=== PATIENT | female | born 1960 | race Caucasian/White ===

== ENCOUNTER 2022-09-13 12:50 | Outpatient (CLI) | payer OTHER, SELFPAY ==
--- NOTE | 2022-09-13 13:00 | XR_ITS ---
Patient: NANETTE MARSH Facility:?[facility] Patient ID:?[id number] Site Patient ID:?[id number]. Site :?[id number] Study:?DEXA-Spine DEXA SPINE/HIPS-09/14/2022 8:08:52 AM Ordering Physician:KASIA Final Report: DXA BONE MINERAL DENSITY STUDY Current height (in): 64.0. Weight (lb): 160.0. Menopause age: 56. Ethnicity: White. Reason for exam: Screening for osteoporosis. 1. Have you had a previous hip or vertebral fracture? No. 2. Have you had any fractures during your adult life which did not result from significant trauma (e.g., auto accident)? No. 3. Did either of your parents have a hip fracture? No. 4. Do you smoke? No. 5. Have you ever taken Glucocorticoids? No. 6. Do you have rheumatoid arthritis? No. 7. Do you have secondary osteoporosis? No. 8. Do you drink 3 or more alcoholic drinks per day? No. 9. Are you being treated for osteoporosis? No. 10. Have you ever taken any of the following medications: Actonel, Evista, Fosamax, Miacalcin, Reclast, Boniva, Forteo, HRT (i.e. estrogen/hormone therapy), Protelos, Prolia, Vitamin D, Calcium, other ? please specify. ANSWER: Yes, vitamin D. 11. Do you have any of the following medical conditions: Anorexia or bulimia, asthma or emphysema, end stage renal disease, hyperparathyroidism, any seizure disorders, cancer, inflammatory bowel diseases, hysterectomy, other ? please specify. ANSWER: No. 12. What was your maximum height (inches)? 64. 13. Do you perform weight bearing exercise regularly? Yes. 14. Do you regularly consume dairy products? Yes. 15. Do you drink caffeinated beverages? No. If female: 16. At what age did your period start? 15. 17. Are you premenopausal? No. 18. How many full term pregnancies have you had? *2 19. Have you ever missed your period for more than 6 months in a row (not including or menopause)? No. TECHNIQUE: Bone mineral density study was performed using the Nestio. FINDINGS: The results of the study expressed as bone mineral density (BMD) are as follows: Lumbar spine L1 to L4: BMD: 0.915 g/cm2. T-score: -1.2. Z-score: 0.3. Neck Left: BMD: 0.764 g/cm2. T-score: -0.8. Z-score: 0.6. Right: BMD: 0.755 g/cm2. T-score: -0.8. Z-score: 0.5. Total Left: BMD: 0.890 g/cm2. T-score: -0.4. Z-score: 0.6. Right: BMD: 0.876 g/cm2. T-score: -0.5. Z-score: 0.5. IMPRESSION: Osteopenia. FRAX 10-year Fracture Risk Major Osteoporotic Fracture: 7.2 percent Hip Fracture: 0.4 percent Reported Risk Factors: [place] () Neck BMD = 0.755, BMI = 27.5 Arturo Vera M.D. Diagnostic Radiologist [email or web address] DSM/morenow: D& Transcribed: 9:26 am DW/Dictated by: Arturo Vera MD @ 09/14/2022 8:20:00 AM Signed by:Denisse Vera MD @09/14/2022 10:32:33 AM (Electronic Signature)
== END 2022-09-13 12:51 | disposition home or self-care (01) ==
LOC: RAD 12:51
PROVIDERS: PCP Family Medicine; Visit Provider Family Medicine
DX: Z13.820 Encounter for screening for osteoporosis (principal); M85.89 Other specified disorders of bone density and structure, multiple sites; Z82.62 Family history of osteoporosis
CPT/HCPCS: 77080

== ENCOUNTER 2022-11-15 11:07 | Outpatient (CLI) | payer OTHER, SELFPAY ==
--- NOTE | 2022-11-15 11:15 | CRLHL7_ITS ---
For Patients: As a result of the Century Cures Act, medical imaging exams and procedure reports are released immediately into your electronic medical record. You may view this report before your referring provider. If you have questions, please contact your health care provider. Technique: Double-contrast esophagram performed after the uneventful administration of effervescent crystals and thick barium followed by thin barium. Fluoroscopy time 1 minutes 39 seconds. Indication: THROAT PAIN, DIFFICULT SWALLOWING Comparison: None. Findings: Esophagus: Normal morphology and mild decreased. No stricture or mass. There is no evidence of diverticulum, stricture or inflammation. No hernia. Gastroesophageal reflux: None. Impression: Mild decreased esophageal motility. Remainder normal. Dictated by Arturo Vera MD @ 11/15/2022 11:55:58 AM (Electronically Signed)
== END 2022-11-15 11:08 | disposition home or self-care (01) ==
LOC: RAD 11:07
PROVIDERS: PCP Family Medicine; Visit Provider Internal Medicine Gastroenterology
DX: R07.0 Pain in throat (principal); R13.10 Dysphagia, unspecified
CPT/HCPCS: 74221

== ENCOUNTER 2023-01-21 08:01 | Outpatient (CLI) | payer OTHER, SELFPAY | END 2023-01-21 08:02 | disposition home or self-care (01) | LOC: OP CLINIC 08:04 | PROVIDERS: PCP Family Medicine; Visit Provider Internal Medicine Gastroenterology | DX: J02.9 Acute pharyngitis, unspecified (principal); K31.89 Other diseases of stomach and duodenum; K21.9 Gastro-esophageal reflux disease without esophagitis; F45.8 Other somatoform disorders | CPT/HCPCS: 43239; 88305; J2250; J3010 ==

== ENCOUNTER 2023-02-05 09:02 | Outpatient (CLI) | payer OTHER, SELFPAY ==
--- NOTE | 2023-02-05 09:15 | CRLHL7_ITS ---
For Patients: As a result of the Century Cures Act, medical imaging exams and procedure reports are released immediately into your electronic medical record. You may view this report before your referring provider. If you have questions, please contact your health care provider. BILATERAL BREAST MRI WITHOUT AND WITH GADOLINIUM CLINICAL HISTORY: Screening. INDICATION FOR BREAST MRI: Screening breast MRI in this high-risk woman. COMPARISON STUDIES: Mammogram 01/26/2022. MRI 2017. CONTRAST: 15 cc Dotarem. TECHNIQUE: The patient was positioned prone using a breast coil. Multiple imaging sequences were obtained using 1-1.5 mm thick slices with no gap. The image sequences include T2-weighted STIR in the axial plane, T1-weighted nonfat-saturated gradient echo in the axial plane, pre- and post-contrast T1-weighted FLASH 3D with fat suppression in the axial plane, and T1-weighted FLASH high-resolution 3D with fat suppression in the sagittal plane. Image post-processing was performed on a Workday workstation. Complex 3D rendering including maximum intensity projections (MIPS) and volumetric renderings were obtained to optimize visualization of the extent of pathology and relationship to the nipple, skin, and chest wall. This aids in determining feasibility of breast conservation surgery. Subtraction, multiplanar reconstruction, mean curve determination, and angiogenesis mapping were also performed. The study was technically adequate. FINDINGS: There is unusual unilateral enhancement of the entire LEFT breast which appears to be the technicality of the scan; therefore, repeat breast MRI is recommended. A member of the [place] [facility] will contact the patient and schedule. She is also due for her screening mammogram. BI-RADS Category 0: Incomplete - Need Additional Imaging Evaluation ??? Technical Repeat Angela Samano M.D. Breast/Body Radiologist [facility] Transcribed: 12:34 p.m. [email or web address] jj/Dictated by: Angela Samano MD @ 02/08/2023 11:38:00 AM (Electronically Signed)
== END 2023-02-05 09:03 | disposition home or self-care (01) ==
PROVIDERS: PCP Family Medicine; Visit Provider Family Medicine
DX: Z12.31 Encounter for screening mammogram for malignant neoplasm of breast (principal); R92.8 Other abnormal and inconclusive findings on diagnostic imaging of breast; Z91.89 Other specified personal risk factors, not elsewhere classified
CPT/HCPCS: 77049; A9575

== ENCOUNTER 2023-02-14 08:05 | Outpatient (CLI) | payer OTHER, SELFPAY ==
--- NOTE | 2023-02-14 08:15 | CRLHL7_ITS ---
For Patients: As a result of the Century Cures Act, medical imaging exams and procedure reports are released immediately into your electronic medical record. You may view this report before your referring provider. If you have questions, please contact your health care provider. BILATERAL SCREENING MAMMOGRAM WITH COMPUTER-AIDED DETECTION AND TOMOSYNTHESIS TECHNIQUE: CC and MLO views were obtained. These mammographic images have been obtained using full-field digital technique. These mammographic images were interpreted with the benefit of computer-aided detection. Breast tomosynthesis was used in this interpretation. COMPARISON FILM: 01/26/22, 12/06/20, 10/20/19. FINDINGS: The breasts are extremely dense, which lowers the sensitivity of mammography. IMPRESSION: There is no radiographic evidence for malignancy. ASSESSMENT: BI-RADS Category 2: Benign RECOMMENDATION: Routine screening mammogram in 1 year. A lay language report of this examination will be provided to the patient. RATURO GARCÍA M.D. Diagnostic Radiologist [email or web address] Transcribed: 02/14/2023, 2:[address]/Dictated by: Arturo García MD @ 02/14/2023 11:43:00 AM (Electronically Signed)
== END 2023-02-14 08:06 | disposition home or self-care (01) ==
PROVIDERS: PCP Family Medicine; Visit Provider Family Medicine
DX: Z12.31 Encounter for screening mammogram for malignant neoplasm of breast (principal); R92.2 Inconclusive mammogram
CPT/HCPCS: 77063; 77067

== ENCOUNTER 2023-08-22 08:45 | Outpatient (RCR) | payer OTHER, SELFPAY | END 2023-10-11 10:14 | disposition home or self-care (01) | PROVIDERS: PCP Family Medicine; Visit Provider Orthopaedic Surgery | DX: M75.82 Other shoulder lesions, left shoulder (principal); Z51.89 Encounter for other specified aftercare | CPT/HCPCS: 97110; 97140; 97161 ==

== ENCOUNTER 2024-06-24 07:19 | Outpatient (CLI) | payer OTHER, SELFPAY ==
--- NOTE | 2024-06-24 07:15 | CRLHL7_ITS ---
For Patients: As a result of the Century Cures Act, medical imaging exams and procedure reports are released immediately into your electronic medical record. You may view this report before your referring provider. If you have questions, please contact your health care provider. CLINICAL HISTORY: ABDOMINAL AND PELVIC PAIN TECHNIQUE: 2D benitez scale ultrasound. In addition color Doppler and spectral Doppler analysis was performed of the pelvis using a transabdominal and transvaginal approach. FINDINGS: The uterus measures 6 x 3 x 3.1 x 5.0 cm. Multiple cervical nabothian cysts are present. No uterine fibroid. The endometrial lining appears heterogeneous and measures 8 mm in thickness. The right ovary measures 3.4 x 1.7 x 1.7 cm in size and the left ovary measures 2.6 x 1.1 x 1.3 cm. The ovaries demonstrate normal arterial and venous blood flow on color Doppler and spectral Doppler analysis. There are no suspicious fluid collections within the cul-de-sac. Hyperechoic structure within the right ovary measures 9 x 6 x 7 millimeters. IMPRESSION: 9 millimeter right ovarian calcification or dermoid. No ovarian torsion or excess pelvic free fluid. No uterine fibroid. Endometrial thickness 8 millimeters. Dictated by Arturo Vera MD @ 06/25/2024 8:54:33 AM (Electronically Signed)
== END 2024-06-24 07:20 | disposition home or self-care (01) ==
LOC: US 07:20
PROVIDERS: PCP Family Medicine; Visit Provider Obstetrics & Gynecology
DX: R10.9 Unspecified abdominal pain (principal); N83.8 Other noninflammatory disorders of ovary, fallopian tube and broad ligament; R93.89 Abnormal findings on diagnostic imaging of other specified body structures; R10.2 Pelvic and perineal pain
CPT/HCPCS: 76830; 76856; 93976

== ENCOUNTER 2025-04-20 10:34 | Outpatient (CLI) | payer OTHER, SELFPAY ==
--- NOTE | 2025-04-20 10:45 | CRLHL7_ITS ---
For Patients: As a result of the Cures Act, medical imaging exams and procedure reports are released immediately into your electronic medical record. You may view this report before your referring provider. If you have questions, please contact your health care provider. DIGITAL DIAGNOSTIC BILATERAL MAMMOGRAM USING TOMOSYNTHESIS AND COMPUTER-AIDED DETECTION LEFT BREAST ULTRASOUND CLINICAL HISTORY: LEFT breast pain. COMPARISON: 02/14/2023, 01/26/2022, 10/20/2019. TECHNIQUE: Digital BILATERAL mammogram in four projections with computer-aided detection. Tomosynthesis was used in this interpretation. Real-time ultrasound imaging of LEFT breast with imaging documentation. BREAST COMPOSITION: The breasts are heterogeneously dense, which may obscure small masses. FINDINGS: 3D CC/MLO BILATERAL mammogram images submitted. Post excisional biopsy changes RIGHT breast. Post needle biopsy procedure LEFT breast benign calcifications bilaterally. No suspicious masses or new area of architectural distortion. No adenopathy. No suspicious calcifications. Targeted LEFT breast ultrasound performed in the area of pain 3-6 o`clock. Normal dense tissue is present. No fibrocystic change or suspicious mass. IMPRESSION: No evidence of malignancy. RECOMMENDATIONS: Routine screening protocol. A lay language report of this examination will be provided to the patient. BI-RADS Category 2: Benign Dictated by Arturo Vera MD @ 04/20/2025 11:35:36 AM jj/Dictated by: Arturo Vera MD @ 04/20/2025 11:35:00 AM (Electronically Signed)
--- NOTE | 2025-04-20 11:15 | CRLHL7_ITS ---
For Patients: As a result of the Cures Act, medical imaging exams and procedure reports are released immediately into your electronic medical record. You may view this report before your referring provider. If you have questions, please contact your health care provider. SEE DIGITAL DIAGNOSTIC BILATERAL MAMMOGRAM PERFORMED SAME DAY CRL:[email or web address]/Dictated by: Arturo Vera MD @ 04/20/2025 11:57:00 AM (Electronically Signed)
== END 2025-04-20 10:35 | disposition home or self-care (01) ==
LOC: MAMMO 10:35
PROVIDERS: PCP Family Medicine; Visit Provider Family Medicine
DX: N64.4 Mastodynia (principal); R92.333 Mammographic heterogeneous density, bilateral breasts
CPT/HCPCS: 76642; 77066; G0279

== ENCOUNTER 2025-04-29 08:52 | Outpatient (CLI) | payer OTHER, SELFPAY ==
--- NOTE | 2025-04-29 09:00 | CRLHL7_ITS ---
For Patients: As a result of the Cures Act, medical imaging exams and procedure reports are released immediately into your electronic medical record. You may view this report before your referring provider. If you have questions, please contact your health care provider. INDICATION: Left sided chest wall pain COMPARISON: none TECHNIQUE: PA chest and left ribs. FINDINGS: The lungs are clear. There is no evidence of pulmonary contusion, pneumothorax or pleural effusion. The heart and pulmonary vessels are of normal size. Oblique detail views of the ribs demonstrate no evidence of fracture or intrinsic bone lesion. There is no evidence of pleural hematoma. IMPRESSION: IMPRESSION:Negative chest and left ribs. Dictated by Arturo Vera MD @ 04/29/2025 9:53:21 AM (Electronically Signed)
== END 2025-04-29 08:53 | disposition home or self-care (01) ==
LOC: RAD 08:53
PROVIDERS: PCP Family Medicine; Visit Provider Family Medicine
DX: R07.89 Other chest pain (principal)
CPT/HCPCS: 71101

== ENCOUNTER 2025-07-20 11:01 | Emergency (ER) | payer OTHER, SELFPAY ==
[2025-07-20 11:03] VITALS: BP 167/94; PULSE 80; RESP 18; TEMP 36.6; O2SAT 97
--- OUTSIDE RECORDS SUMMARY | 2025-07-20 11:04 | XMS_ITS | Clinical Summary ---
Author Organization [facility] Address [address] [place] [id number] Care Team Providers Care Mold Forms Builder Name Role Phone Gerardo Jovel MD Primary Care Provider Allergies No known active allergies Medications ergocalciferol (VITAMIN D) 400 unit capsule Take 800 Units by mouth once daily. 0 03/14/2010 Active famotidine (PEPCID) 20 mg tabletIndication s:Throat pain,Family history of Sagastume's esophagus,Globus sensation Take 1 Tablet (20 mg) by mouth two times daily. 0 11/09/2022 Active Active Problems Problem Noted Date Diagnosed Date Pap smear for cervical cancer screening 11/14/20 23 Overview (11/14/2023): 11/2023 NIL/HPV negative. Plan: Routine Screening. Family history of Sagastume's esophagus 11/09/2022 Osteopenia 09/14/2022 Overview (11/20/2022): Low FRAX scores. Erythema nodosum 10/30/2011 Family history of breast cancer 04/12/2010 Change in bowel habits 10/21/2009 Overview (10/21/2009): Colonoscopy 10/2009 normal repeat in 10 years Fibrocystic breast Encounters Date Type Department Care Team Description 04/30/2025 Orders Only [facility] [address] [place] [address] Daysi Baez [facility] [place]: (1-Ord) [facility], RIBS LT MIN 3V W CXR1V, 04/29/2025 04/27/2025 Telephone [facility] [address] [place] [address] Gerardo Jovel MD Referral 04/21/2025 Orders Only [facility] [address] [place] [address] Gerardo Jovel MD 1 scan: (1-Ord) [facility], MM DIAGNOSTIC MAMMO BI, 04/20/2025 from Last 3 Months Immunizations Immunization Administration Dates Next Due COVID-19 VACCINE (BRAND[employer] - [employer].-BIO NTECH 3MCG/0.3ML) 6MO-4YO PF, MDV 08/27/2023 COVID-19 vaccine ([employer]-Bio NTech 30mcg/0.3mL) PF, MDV 12/13/2020,11/23/2020 HepA-HepB (Twinrix) 08/08/2004,07/22/2003 Hepatitis B (Adult) 10/17/2007 Inactivated Polio Vaccine 07/22/2003 Influenza Intradermal PF 18-64 yrs 09/07/2015 Influenza RIV4 (Age 18+ Year s) PRESERV FREE 09/02/2019 Influenza Virus, Unspecified 09/18/2017,09/06/20 09 Influenza, IIV3 (Age 6-35 mos) 09/20/2020,2017 Influenza, IIV3 (Age >=3 years) 10/16/20 12,11/29/2010,11/02/2008,2006,10/23/2003 Influenza, IIV4 08/27/2023, 2,08/22/2016,2013 Influenza, IIV4 (=>6mos) MDV 08/30/2021 Influenza, Intradermal, Quad rivalent, Pf 09/18/2017 Td (Age >=7 Years) 07/22/2003 Tdap 10/19/2014 Zoster (Shingrix-RZV, recombinant) 05/31/2020, Family History Medical History Relation Name Comments Heart Disease Brother otto 2 MS's before 55. Other Brother otto brain aneurysm in 40's Other Child Eliseo - Danlos syndrome Diabetes Father Cancer-breast Maternal Aunt Cancer Maternal Grandfather lung Cancer-breast Maternal Grandmother Cancer-breast Mother Cancer-colon Neg. Cancer-breast Paternal Aunt Diabetes Paternal Grandfather type 1 Cancer Sister malignant melan ac Relation Name Status Comments Brother otto Child Alive Father Alive Maternal Aunt Maternal Grandfather Maternal Grandmother Mother Neg. Paternal Aunt Paternal Grandfather Sister Social History Tobacco Use Types Packs/Day Years Used Date Smoking Tobacco: Never Smokeless Tobacco: Never Tobacco Cessation:Counseling Given: No Alcohol Use Standard Drinks/Week Comments Yes 0 (1 standard drink = 0.6 oz pur e alcohol) rare PHQ-2 Answer Date Recorded PHQ-2 TOTAL SCORE 2 08/21/2022 Social Connections Answer Date Recorded Do you often feel lonely or isolated from those around you? 0 04/07/2025 Financial Resource Strain Answer Date R ecorded Difficulty of Paying Living Expenses 3 04/07/2025 Difficulty of Paying Living Expenses Not on file 04/07/2025 Food Insecurity Answer Date Recorded Do you worry your food will run out before you are able to buy more? 1 04/07/2025 Transportation Needs Answer Date Record ed Does lack of transportation keep you from medica l appointments? 1 04/07/2025 Does lack of transportation keep you from work, meetings or getting things that you need? 1 04/07/2025 Housing Stability Answer Date Recorded What is your housing situation today? 1 04/07/2025 Utilities Answer Date Recorded Do you have trouble paying f or utilities (for example, heat, electricity, water, phone)? 1 04/07/2025 Comments No Sex and Gender Information Value Date Recorded Sex Assigned at Not on file Legal Sex Female 5:59 AM [facility] Gender Identity Not on file Sexual Orientation Not on file Obstetrics History Last Filed Vital Signs Vital Sign Reading Time Taken Comments Blood Pressure 118/83 04/07/2025 8:50 AM CDT Pulse 83 04/07/2025 8:50 AM CDT Temperature 36.1 C (97 F) 02/22/2023 1:02 PM CDT Respiratory Rate 18 11/09/2015 1:01 PM O[facility] Oxygen Saturation 97% 04/07/2025 8:50 AM CDT Inhaled Oxygen Concentration - - Weight 75.1 kg (165 lb 9.6 oz) 04/07/2025 8:50 A M CDT Height 165.5 cm (5' 5.16) 02/22/2023 1:02 PM CD T Body Mass Index 27.42 02/22/2023 1:02 PM CDT Plan of Treatment Health Maintenance Due Date Last Done Comments HIV for age 15-65 1976 Pneumococcal series for age 50+ (1 of 1 - PCV) 2011 Depression screening for age 12+ 08/23/2023 08/23/2022, 08/21/2022, 01/06/2020, Additional history exists Mammogram for age 45-75 02/15/2024 02/15/20 23, 01/26/2022, 12/06/2020, Additional history exists BMI (ht and wt on same day) for age 18+ 02/23/2024 02/22/2023, 08/21/2022, 06/30/2020, Additional history exists Tetanus booster 10/19/2024 10/19/2014, 07/22/2003 Influenza Vaccine (#1) 2025 , 08/29/2022, 08/30/2021, Additional history exists Lipids for age 45-75 08/31/2027 08/31/2022, 08/21/2022, 08/21/2022, Additional history exists Pap test for age 21-65 11/04/2028 , 11/04/2023, 01/06/2020, Additional history exists Colonoscopy through age 75 03/27/203103/27, 03/27/2021, 10/19/2009, Additional history exists RSV vaccine for adults or (1 - 1-dose 75+ series) 2036 Hepatitis B series for 19+ Completed 10/17, 08/08/2004, 07/22/2003 Hepatitis C screening for ag e 18-79 Completed 10/25/2014 Zoster (shingles) series for age 50+ Completed 05/31/2020, 02/10/2020 COVID-19 vaccine series Completed 03/13/20, 09/03/2024, 08/27/2023, Additional history exists Procedures Procedure Name Priority Date/Time Associated Diagnosis Comments XR RIBS LEFT AND PA CHEST MINIMUM 3 VIEWS Routine 04/29/2025 12:00 AM CDT Left-sided chest wall pain MR BREAST CAD WWO BILATERAL Routine 04/20/2025 12:00 AM CDT Breast cancer screening, high risk patient HPV HIGH RISK Routine 11/04/2023 10:30 AM [facility] Pap smear for cervical cancer screening SCAN-MAMMOGRAPHY REPORT 02/14/2023 12:00 AM CDT LIPID PANEL W REFLEX MEASURED LDL Routine 08/31/2022 7:33 AM CDT Hyperlipidemia, unspecified hyperlipidemia type COLONOSCOPY SCREENING Routine 03/27/2021 12:00 AM CDT Screening for colon cancer ANTI HCV Routine 10/25/2014 7:55 AM [facility] Need for hepatitis C screening test from Last 3 Months or Most Recently Relevant to Health Maintenance Results * XR RIBS LEFT AND PA CHEST MINIMUM 3 VIEWS (04/29/2025 12:00 AM CDT) Anatomical Region Laterality Modality RIBS, RIBS L, CHEST Digital Radi ography us Gerardo Jovel MD GENERAL IMAGING Final Result * MR BREAST CAD WWO BILATERAL (04/20/2025 12:00 AM CDT) Anatomical Region Laterality Modality BREASTS, Breast Left, Breast Right Bilateral Magnetic Resonance us Gerardo Jovel MD MR Final Result * HPV HIGH RISK (11/04/2023 10:30 AM [facility]) TYPE 16 Negative Negative 11/07/2023 2:05 PM [facility] TYPE 18 Negative Negative 11/07/2023 2:05 PM [facility] OTHER HIGH RISK TYPES Negative Negative 11/07/2023 2:05 PM [facility] Other (Cervical) Non-Blood / Unknown 11/04/2023 10:30 AM O[facility]MAN 11/05/2023 12:45 PM [facility] Narrative [facility] - 11/07/2023 2:05 PM O[facility] HPV types 16, 18, 31, 33, 35, 39, 45, 51, 52, 56, 58, 59, 66 and 68 DNA were undetectable or below the pre-set threshold. Methodology: Angelo Krishan 4800 HPV Test us Gerardo Jovel MD MICROBIOLOGY Final Result [facility] [address] [place] [address], [place] * SCAN-MAMMOGRAPHY REPORT (02/14/2023 12:00 AM CDT) Anatomical Region Laterality Modality Other us Scanner OTHER Final Result * (ABNORMAL) LIPID PANEL W REFLEX MEASURED LDL (08/31/2022 7:33 AM CDT) CHOLESTEROL,TOTAL 220(H) 100 - 199 mg/dL 08/31/2022 6:20 PM CDT [facility] TRIGLYCERIDES 184(H) <150 mg/dL 08/31/2022 6:20 PM CDT [facility] HDL CHOLESTEROL 46 >40 mg/dL 6:20 PM CDT [facility] NON-HDL CHOLESTEROL 174(H) <145 mg/dl 08/31/2022 6:20 PM CDT [facility] CHOL/HDL RATIO 4.78(H) <4.50 08/31/2022 6:20 PM CDT [facility] LDL CHOLESTEROL 137(H) <=130 mg/dL 08/31/2022 6:20 PM CDT [facility] VLDL CHOLESTEROL 37(H) <=30 mg/dL 08/31/2022 6:20 PM CDT [facility] PROVIDER ORDERED STATUS RANDOM 08/31/2022 6:20 PM CDT [facility] Blood BLOOD SPECIMEN / Unknown Venipuncture / Unknown 08/31/2022 7:33 AM CDT 08/31/2022 7:33 AM CDT Gerardo Jovel MD CHEMISTRY Final Result Performing Organization Address [facility] Co de Phone Number [facility] [address] [place] [address], * COLONOSCOPY SCREENING (03/27/2021 12:00 AM CDT) Gerardo Jovel MD GI PROCEDURE ORD Final Result * ANTI HCV [43057.2] (10/25/2014 7:55 AM O[facility]) HEPATITIS C ANTIBODY Non-Reacti ve Non-Reacti ve 10/25/2014 2:19 PM [facility] Blood specimen (specimen) BLOOD SPECIMEN / Unknown Venipuncture / Unknown 10/25/2014 7:55 AM [facility] 10/25/2014 7:55 AM [facility] Narrative [facility] - 10/25/2014 2:19 PM [facility] Antibodies to HCV not detected; does not exclude the possibility of exposure to HCV. Gerardo Jovel MD SEND OUTS Final Result Performing Organization Address [facility] Co de Phone Number [facility] [address] [place] [address], from Last 3 Months or Most Recently Relevant to Health Maintenance Insurance [facility] [employer] [facility] Care Teams Mold Forms Builder Relationship Specialty Start Date End Date Gerardo Jovel MD [address] [place] [address] PCP - General 06/12/06
--- NOTE | 2025-07-20 11:15 | ED.GENADULT ---
HPI - General Adult General Chief complaint: Back Injury/Pain Stated complaint: back pain- sharp pain on ears and neck Time Seen by Provider: 07/20/25 11:15 History of Present Illness HPI narrative: Patient presents to the emergency department complaining of sudden bilateral ear pain, left side neck, and middle of her back pain. Pain is described as sharp and consistent. Patient denies any shortness of breath. Patient denies any history of any 64-year-old woman presenting to the emergency department with concern of sudden onset of pain in both her ears that seem to radiate down her jaw and then followed by some left-sided neck pain and then pain in the middle of her back. Rather sharp. Has settled a little bit since presenting to the emergency department. Symptoms escalated over about 10 minutes. She is not having nausea. No diaphoresis. No radiation into extremities. Is not short of breath. Is not having any pleuritic pain. Generally well. Does have occasional GERD and will take famotidine. This seems different. Has never had any abdominal surgeries. No family history of gallbladder problems noted. Father has had heart attack and brother had a couple heart attacks before the age of 40. Does have a dental device for sleep apnea and acknowledges that possibly could grind her teeth. Related Data Home Medications ?Medication ?Instructions ?Recorded ?Confirmed famotidine 10 mg tablet 10 mg PO QDAY 11/01/24 04/16/25 Allergies Allergy/AdvReac Type Severity Reaction Status Date / Time No Known Drug Allergies Allergy Verified 07/20/25 12:44 Review of Systems Status of ROS: Reports: 6 or more systems reviewed and unremarkable except as noted in History and below [facility] Medical History Eczema ?L30.9 - Dermatitis, unspecified (ICD-10) Anemia ?D64.9 - Anemia, unspecified (ICD-10) Sleep apnea ?G47.30 - Sleep apnea, unspecified (ICD-10) Prepatellar bursitis, right knee ?M70.41 - Prepatellar bursitis, right knee (ICD-10) Plantar fasciitis of left foot ?M72.2 - Plantar fascial fibromatosis (ICD-10) Surgical History History of right knee surgery (10/25/04) ?Z98.890 - Other specified postprocedural states (ICD-10) H/O breast biopsy (1994) ?Z98.890 - Other specified postprocedural states (ICD-10) Family History Father Diabetes Paternal Grandfather Diabetes Mother Breast cancer Maternal Grandmother Breast cancer Aunt Breast cancer Other Aneurysm Melanoma Social History Narrative: Non-smoker, Alcohol use is rare. Smoking Status: Never smoker How often do you have a drink containing alcohol: never How often do you have six or more drinks on one occasion: Never AUDIT-C Alcohol total score: 0 Non-prescribed substance use: denies use service: No Exam Narrative: Exam Narrative: Very pleasant. NAD. Skin is warm and dry. She is well-perfused peripherally. She has no lower extremity edema. Lungs are clear. There is no pain to palpation about the back or flank. Neck is supple with strong and equal carotid upstroke. Pain is described as not really reproducible. Upper extremities with equal pulses as well. Heart in regular rate and rhythm without murmur rub or gallop. Abdomen is soft and mildly tender to palpation throughout the left side of the abdomen. No peritoneal signs. Const: Vital Signs, click to edit/add: Vital Signs - 24 hr 07/20/25 11:03 Temperature 97.8 F Pulse Rate [Right Pulse Oximeter] 80 Respiratory Rate 18 Blood Pressure [Ri ght Upper Arm] 167/94 H Pulse Oximetry 97 Oxygen Delivery Me thod Room Air Documenting provider has reviewed patient's vital signs: yes Course Vital Signs Vital signs: Initial Vital Signs Temperature 97.8 F 07/20/25 11:03 Temperature Source Temporal Artery Scan 07/20/25 11:03 Pulse Rate 80 07/20/25 11:03 Pulse Rhythm Regular 07/20/25 11:03 Pulse Strength 3+ Normal 07/20/25 11:03 Respiratory Rate 18 07/20/25 11:03 Blood Pressure 167/94 H 07/20/25 11:03 Blood Pressure Mean 118 H 07/20/25 11:03 Blood Pressure Position Sitting 07/20/25 11:03 Pulse Oximetry 97 07/20/25 11:03 Oxygen Delivery Method Room Air 07/20/25 11:03 Vital Signs Temperature 97.8 F 07/20/25 11:03 Pulse Rate 80 07/20/25 11:03 Respiratory Rate 18 07/20/25 11:03 Blood Pressure 167/94 H 07/20/25 11:03 Pulse Oximetry 97 07/20/25 11:03 Oxygen Delivery Method Room Air 07/20/25 11:03 Temperature 97.8 F 07/20/25 11:03 Pulse Rate 80 07/20/25 11:03 Respiratory Rate 18 07/20/25 11:03 Blood Pressure 167/94 H 07/20/25 11:03 Pulse Oximetry 98 07/20/25 11:30 Oxygen Delivery Method Room Air 07/20/25 11:03 Medical Decision Making MDM Narrative Medical decision making narrative: Differential includes aortic or vascular dissection, ischemic cardiovascular event, arrhythmia, gallbladder disease, pulmonary/pneumothorax. She does not seem particularly anxious. Lack of pleuritic pain or symptoms otherwise I think suggest against pulmonary embolus. Will collect standard labs though and continue to monitor. One-view chest x-ray independently reviewed by me looks to be WNL. D-dimer slightly elevated. Other labs are reassuring. Symptoms are still rather unexplained and location in evolution would be particularly concerning for aortic dissection. Discussed CT contrasted imaging to clarify in this case. We decided to proceed. By my independent review there appears to be some unusual vascular formation in the mid abdomen in the pancreas/splenic area. Radiology over-read below noting splenic aneurysm, calcified INDICATION: Neck, back and side pain. TECHNIQUE: CT chest without contrast and CT chest, abdomen and pelvis acquired with 95 cc of Isovue 370 IV contrast, dissection protocol. Sagittal, coronal and maximum intensity projection reformatted images submitted for review. COMPARISON: Chest radiograph 07/20/2025. FINDINGS: Chest: Cardiovascular structures: Noncontrast images show no acute intramural hematoma in the thoracic aorta. No aneurysm or dissection of the thoracic aorta. Main pulmonary artery is normal in caliber. Heart size is within normal limits. Mediastinum and david: No pathologic lymphadenopathy. Lungs: No pneumothorax. Central airways are patent. Mild motion artifact with bilateral subsegmental atelectasis. Lungs otherwise clear. Pleura and pericardium: No effusions. Chest wall and axilla: Unremarkable. ABDOMEN AND PELVIS: Liver: Unremarkable. Spleen: No focal splenic lesion. Densely calcified 11 mm splenic artery aneurysm, of doubtful significance. Pancreas: Unremarkable. Gallbladder and bile ducts: Unremarkable. Kidneys: Unremarkable. Adrenal glands: Unremarkable. GI tract: No obstruction or focal inflammatory changes. Normal appendix. No free air or free fluid. Vascular structures: No aneurysm or dissection of the abdominal aorta. Celiac, superior mesenteric and inferior mesenteric arteries are patent. Bilateral renal arteries are patent. Iliofemoral vasculature as imaged is patent. Lymph nodes: Unremarkable. Pelvic Organs: Unremarkable. Bones: Mild degenerative changes of the spine. No acute or suspicious abnormality. IMPRESSION: 1. No evidence of aortic dissection. 2. No other acute abnormality in the chest, abdomen or pelvis. 3. Densely calcified 11 mm splenic artery aneurysm, of doubtful significance. However, follow-up CTA of the abdomen in 12 months would be recommended if follow-up imaging is desired. Dictated by Shaheen Tolbert MD @ 07/20/2025 1:59:10 PM I did share these results with Ms. Clinton. Symptoms have improved. Repeat troponin is negative. No events on monitoring specialist or oximetry during time of monitoring in the emergency department. See patient discharge plan for further discussion I am sorry we could not clarify further what exactly was wrong. I am happy you are feeling better. Was a pleasure to take care of you. Would still consider returning for marked increase in recurrence of persistent pain, particularly associated with shortness of breath or lightheadedness. As far as this splenic aneurysm is concerned, would discuss this on follow-up in primary care. Medical Records Medical records reviewed: Yes I reviewed the patient's medical records Lab Data Lab results reviewed: Yes I reviewed the patient's lab results Labs: Lab Results 07/20/25 07/20/25 07/20/25 Range/Units 11:28 11:30 12:58 WBC 5.44 (4.50-11.00) K/uL RBC 4.72 (4.00-5.20) m/uL Hgb 14.3 (12.0-16.0) gm/dL Hct 42.7 (33.0-51.0) % MCV 91 (80-100) fL MCH 30 (26-34) pg MCHC 34 (32-36) gm/dL RDW Coeff of Yana 12.1 (11.5-15.5) % Plt Count 217 (140-440) K/uL Neut % (Auto) 60.2 (42.0-72.0) % Lymph % (Auto) 30.9 (20-44) % [place] % (Auto) 7.4 (0.0-11.0) % Eos % (Auto) 1.1 (0.0-7.0) % Baso % (Auto) 0.2 (0.0-3.0) % Neut # (Auto) 3.28 (1.7-7.0) K/uL Lymph # (Auto) 1.68 (0.90-2.90) K/uL [place] # (Auto) 0.40 (0.00-0.90) K/UL Eos # (Auto) 0.06 (0.00-0.50) K/uL Baso # (Auto) 0.01 (0.00-0.30) K/uL Abs Immat Gran (auto) 0.01 (0.00-0.30) K/uL Imm/Tot Granulo (auto) 0.2 % D-Dimer Quant (PE/DVT) 0.51 H (0.00-0.50) ug/ml Sodium 137 (135-149) mmol/L Potassium 4.0 (3.6-5.1) mmol/L Chloride 101 (96-114) mmol/L Carbon Dioxide 28 (20-32) mmol/L Anion Gap 8 (7-15) mEq/L BUN 10 (7-30) mg/dL Creatinine 0.6 (0.5-1.5) mg/dL Estimated GFR 101 ml/min Glucose 110 (60-115) mg/dL Calcium 9.4 (8.4-10.6) mg/dL Total Bilirubin 0.9 (0.1-1.5) mg/dL Direct Bilirubin 0.1 (0.0-0.5) mg/dL AST 34 (12-35) U/L ALT 35 (4-35) U/L Alkaline Phosphatase 95 (40-150) U/L Troponin I < 0.01 (0.01-0.04) ng/mL C-Reactive Protein < 0.5 L (0.5-1.0) mg/dL Total Protein 8.0 (6.0-8.3) g/dL Albumin 4.6 (3.3-5.0) g/dL Lipase 84 (23-300) U/L Lab Acknowledgement POC Troponin I 0.01 0.00 L (0.01-0.04) ng/ml 07/20/25 Range/Units 13:59 WBC (4.50-11.00) K/uL RBC (4.00-5.20) m/uL Hgb (12.0-16.0) gm/dL Hct (33.0-51.0) % MCV (80-100) fL MCH (26-34) pg MCHC (32-36) gm/dL RDW Coeff of Yana (11.5-15.5) % Plt Count (140-440) K/uL Neut % (Auto) (42.0-72.0) % Lymph % (Auto) (20-44) % [place] % (Auto) (0.0-11.0) % Eos % (Auto) (0.0-7.0) % Baso % (Auto) (0.0-3.0) % Neut # (Auto) (1.7-7.0) K/uL Lymph # (Auto) (0.90-2.90) K/uL [place] # (Auto) (0.00-0.90) K/UL Eos # (Auto) (0.00-0.50) K/uL Baso # (Auto) (0.00-0.30) K/uL Abs Immat Gran (auto) (0.00-0.30) K/uL Imm/Tot Granulo (auto) % D-Dimer Quant (PE/DVT) (0.00-0.50) ug/ml Sodium (135-149) mmol/L Potassium (3.6-5.1) mmol/L Chloride (96-114) mmol/L Carbon Dioxide (20-32) mmol/L Anion Gap (7-15) mEq/L BUN (7-30) mg/dL Creatinine (0.5-1.5) mg/dL Estimated GFR ml/min Glucose (60-115) mg/dL Calcium (8.4-10.6) mg/dL Total Bilirubin (0.1-1.5) mg/dL Direct Bilirubin (0.0-0.5) mg/dL AST (12-35) U/L ALT (4-35) U/L Alkaline Phosphatase (40-150) U/L Troponin I (0.01-0.04) ng/mL C-Reactive Protein (0.5-1.0) mg/dL Total Protein (6.0-8.3) g/dL Albumin (3.3-5.0) g/dL Lipase (23-300) U/L Lab Acknowledgement Test Added POC Troponin I (0.01-0.04) ng/ml ECG Data Attestation: I personally reviewed and interpreted this ECG as follows: (Normal sinus rhythm at a rate of 74. P-wave looks a little prominent but probably WNL. No ischemic changes appreciated) Discharge Plan Discharge Clinical Impression: Atypical chest pain Patient Disposition: Home, Self-Care Condition: Improved Additional Instructions: I am sorry we could not clarify further what exactly was wrong. I am happy you are feeling better. Was a pleasure to take care of you. Would still consider returning for marked increase in recurrence of persistent pain, particularly associated with shortness of breath or lightheadedness. As far as this splenic aneurysm is concerned, would discuss this on follow-up in primary care. Prescriptions: No Action famotidine 10 mg tablet 10 mg PO QDAY Follow Up/Referrals: Gerardo Jovel MD [Primary Care Provider, Family Practice] Stand Alone Forms: MyHealth Info Instructions
--- NOTE | 2025-07-20 11:28 | CRLHL7_ITS ---
For Patients: As a result of the Cures Act, medical imaging exams and procedure reports are released immediately into your electronic medical record. You may view this report before your referring provider. If you have questions, please contact your health care provider. INDICATION: Neck and upper back pain. TECHNIQUE: Chest 1 views. COMPARISON: 04/29/2025 FINDINGS: Hazy lower lung opacities likely represent overlying soft tissue. No gross consolidation. No significant effusion. No pneumothorax. Mediastinal contours are prominent grossly stable. Heart size is stable. IMPRESSION: No acute cardiopulmonary abnormality. Dictated by Wyatt Turner MD @ 07/20/2025 12:09:12 PM (Electronically Signed)
[2025-07-20 11:30] VITALS: O2SAT 98
[2025-07-20 11:40] LABS: Hematocrit 42.7 % (33.0-51.0); Hemoglobin* 14.3 gm/dL (12.0-16.0); Immature Granulocytes Abs Auto 0.01 K/uL (0.00-0.30); Immature Granulocytes Pct Auto 0.2 %; Lymphocytes Absolute Auto 1.68 K/uL (0.90-2.90); Mean Corpuscular HGB Conc 34 gm/dL (32-36); Mean Corpuscular Hemoglobin 30 pg (26-34); Mean Corpuscular Volume 91 fL (80-100); RDW Coefficient of Variation % 12.1 % (11.5-15.5); Red Blood Count 4.72 m/uL (4.00-5.20); Slide Review Reflex No; White Blood Count* 5.44 K/uL (4.50-11.00)
[2025-07-20 11:45] LABS: Troponin, Point-of-Care* 0.01 ng/ml (0.01-0.04)
[2025-07-20 11:50] LABS: Albumin* 4.6 g/dL (3.3-5.0); Chloride* 101 mmol/L (96-114)
[2025-07-20 11:51] LABS: Potassium* 4.0 mmol/L (3.6-5.1); Sodium* 137 mmol/L (135-149)
[2025-07-20 11:53] LABS: Blood Urea Nitrogen* 10 mg/dL (7-30); Creatinine* 0.6 mg/dL (0.5-1.5); Estimated Glomerular Filt Rate 101 ml/min
[2025-07-20 11:54] LABS: Alanine Aminotransferase* 35 U/L (4-35); Alkaline Phosphatase* 95 U/L (40-150); Anion Gap 8 mEq/L (7-15); Aspartate Amino Transferase* 34 U/L (12-35); Bilirubin Direct* 0.1 mg/dL (0.0-0.5); Bilirubin Total* 0.9 mg/dL (0.1-1.5); Calcium* 9.4 mg/dL (8.4-10.6); Carbon Dioxide* 28 mmol/L (20-32); Glucose* 110 mg/dL (60-115); Total Protein* 8.0 g/dL (6.0-8.3)
[2025-07-20 11:56] LABS: D Dimer Quantitative* 0.51 ug/ml (0.00-0.50)
--- NOTE | 2025-07-20 12:30 | CRLHL7_ITS ---
For Patients: As a result of the Century Cures Act, medical imaging exams and procedure reports are released immediately into your electronic medical record. You may view this report before your referring provider. If you have questions, please contact your health care provider. INDICATION: Neck, back and side pain. TECHNIQUE: CT chest without contrast and CT chest, abdomen and pelvis acquired with 95 cc of Isovue 370 IV contrast, dissection protocol. Sagittal, coronal and maximum intensity projection reformatted images submitted for review. COMPARISON: Chest radiograph 07/20/2025. FINDINGS: Chest: Cardiovascular structures: Noncontrast images show no acute intramural hematoma in the thoracic aorta. No aneurysm or dissection of the thoracic aorta. Main pulmonary artery is normal in caliber. Heart size is within normal limits. Mediastinum and david: No pathologic lymphadenopathy. Lungs: No pneumothorax. Central airways are patent. Mild motion artifact with bilateral subsegmental atelectasis. Lungs otherwise clear. Pleura and pericardium: No effusions. Chest wall and axilla: Unremarkable. ABDOMEN AND PELVIS: Liver: Unremarkable. Spleen: No focal splenic lesion. Densely calcified 11 mm splenic artery aneurysm, of doubtful significance. Pancreas: Unremarkable. Gallbladder and bile ducts: Unremarkable. Kidneys: Unremarkable. Adrenal glands: Unremarkable. GI tract: No obstruction or focal inflammatory changes. Normal appendix. No free air or free fluid. Vascular structures: No aneurysm or dissection of the abdominal aorta. Celiac, superior mesenteric and inferior mesenteric arteries are patent. Bilateral renal arteries are patent. Iliofemoral vasculature as imaged is patent. Lymph nodes: Unremarkable. Pelvic Organs: Unremarkable. Bones: Mild degenerative changes of the spine. No acute or suspicious abnormality. IMPRESSION: 1. No evidence of aortic dissection. 2. No other acute abnormality in the chest, abdomen or pelvis. 3. Densely calcified 11 mm splenic artery aneurysm, of doubtful significance. However, follow-up CTA of the abdomen in 12 months would be recommended if follow-up imaging is desired. Dictated by Shaheen Tolbert MD @ 07/20/2025 1:59:10 PM Please note that all CT scans at this facility use dose modulation, iterative reconstruction, and/or weight-based dosing when appropriate to reduce radiation dose to as low as reasonably achievable. Dictated by: Shaheen Tolbert MD @ 07/20/2025 14:01:48 (Electronically Signed)
[2025-07-20 13:59] LABS: Troponin, Point-of-Care* 0.00 ng/ml (0.01-0.04)
== END 2025-07-20 15:13 | disposition home or self-care (01) ==
PROVIDERS: Emergency Provider Family Medicine; PCP Family Medicine
DX: R07.9 Chest pain, unspecified (principal)
CPT/HCPCS: 36415; 71045; 71275; 74174; 80048; 80076; 83690; 84484; 85025; 85379; 86140; 93005; 94761; 99284; 99285; Q9967